=== PATIENT | female | born 1980 | race Two or more races ===

== ENCOUNTER 2023-02-09 19:09 | Inpatient (IN) | payer BC, MEDICAID ==
[~2023-02-09] VITALS: Ht 157.5 cm; Wt 75.3 kg
[2023-02-09] MEDS ORDERED: LIDOCAINE 2%HCL (LOCAL ANESTH.) INJ 20ML MDV ONE (20:06)
[2023-02-09] MEDS ORDERED: miSOPROStol 100 mcg TAB ONE (20:06)
[2023-02-09] MEDS ORDERED: DERMOPLAST 60ML BOTTLE TOP ONE (20:06)
[2023-02-09] MEDS ORDERED: PHISODERM TOP SOLN 240ML BTL TOP ONE (20:06)
[2023-02-09] MEDS ORDERED: LACT. RINGERS/OXYTOCIN 20UNITS 1,000 ML IV ONE (20:06)
[2023-02-09] MEDS ORDERED: WITCH HAZEL-GLYCERIN PAD TOP ONE (20:06)
[2023-02-09] MEDS ORDERED: OXYTOCIN 10UNIT/ML 1ML VIAL ONE ×2 (20:06→20:07)
[2023-02-09] MEDS ORDERED: METHYLERGONOVINE MALEATE 0.2 MG/ML AMP IM ONE (20:07)
[2023-02-09] MEDS ORDERED: DERMOPLAST 60ML BOTTLE TOP PRN (20:45)
[2023-02-09] MEDS ORDERED: PHISODERM TOP SOLN 240ML BTL TOP PRN (20:45)
[2023-02-09] MEDS ORDERED: METHYLERGONOVINE MALEATE 0.2 MG/ML AMP IM PRN (20:45)
[2023-02-09] MEDS: LACTATED RINGER'S 1,000 ML IV SCH (20:45)
[2023-02-09] MEDS ORDERED: LACT. RINGERS/OXYTOCIN 20UNITS 500 ML IV ONE ×2 (20:45→21:15)
[2023-02-09] MEDS ORDERED: WITCH HAZEL-GLYCERIN PAD TOP PRN (20:45)
[2023-02-09] MEDS ORDERED: LIDOCAINE 2%HCL (LOCAL ANESTH.) INJ 20ML MDV IJ PRN (20:45)
[2023-02-09] MEDS ORDERED: IBUPROFEN 600 MG TAB PO PRN (21:15)
[2023-02-09] MEDS ORDERED: ONDANSETRON ODT 4 MG TAB PO PRN (21:15)
[2023-02-09] MEDS ORDERED: ACETAMINOPHEN 325 MG TAB PO PRN (21:15)
[2023-02-09 21:24] LABS: Basophils # (auto) 0 10 ^3/uL (0-0.2); Basophils % (auto) 0.4 % (0.0-2.0); Eosinophils # (auto) 0 10 ^3/uL (0-0.8); Eosinophils % (auto) 0.3 % (0.0-7.0); Hematocrit 39.9 % (36.0-46.0); Hemoglobin 13.8 g/dL (12.2-16.2); Lymphocytes # (auto) 1.3 10 ^3/uL (0.4-5.4); Mean Corpuscular Hemoglobin 32.9 pg (28.0-32.0); Mean Corpuscular Hgb Conc. 34.7 g/dL (32.0-36.0); Mean Corpuscular Volume 94.8 fL (80.0-100.0); Monocytes # (auto) 0.6 10 ^3/uL (0-1.3); Neutrophils # (auto) 8.2 10 ^3/uL (1.6-8.6); Neutrophils % (auto) 80.3 % (37.0-80.0); Nucleated Red Blood Cells % 0.2 %; Red Blood Cells 4.21 10^6/uL (4.0-5.20); Red Cell Distribution Width 13.6 % (11.8-14.3); White Blood Cell 10.2 10^3/uL (4.4-10.8)
[2023-02-09 21:42] LABS: INR 0.91 (0.9-1.15)
[2023-02-09 21:47] LABS: Urine Bacteria NONE SEEN /hpf (None Seen); Urine Blood Negative /uL (Negative); Urine WBC 1 /hpf (0 - 5)
[2023-02-09] MEDS: DOCUSATE SOD 100 MG CAP PO SCH (21:51)
[2023-02-09 21:57] LABS: Potassium 3.8 mmol/L (3.5-5.1)
[2023-02-09 22:04] LABS: Albumin 2.7 g/dL (3.4-5.0); BUN/Creatinine Ratio 14.8 (10.0-20.0); Bilirubin, Total 0.5 mg/dL (0.2-1.0); Total Protein 6.7 g/dL (6.4-8.2)
[2023-02-09 22:14] LABS: Alcohol, Urine < 3.0 mg/dL (0-10); Amphetamine Screen, Urine NEGATIVE (NEGATIVE); Barbiturate Scree,Urine NEGATIVE (NEGATIVE); Benzodiazephine Screen, Urine NEGATIVE (NEGATIVE); Cannabinoid Screen, Urine NEGATIVE (NEGATIVE); Cocaine Screen, Urine NEGATIVE (NEGATIVE); Opiate Scree,Urine NEGATIVE (NEGATIVE); Phencyclidine Screen, Urine NEGATIVE (NEGATIVE)
[2023-02-09 23:10] VITALS: BP 105/56
[2023-02-10 03:00] VITALS: BP 103/55
[2023-02-10] MEDS: LACTATED RINGER'S 1,000 ML IV SCH ×2 (04:45→12:45)
[2023-02-10 07:00] VITALS: BP 96/53
[2023-02-10 11:00] VITALS: BP 92/47
[2023-02-10 15:00] VITALS: BP 90/45
[2023-02-10 18:35] VITALS: BP 95/54
[2023-02-10] MEDS: DOCUSATE SOD 100 MG CAP PO SCH (22:11)
[2023-02-10 22:52] VITALS: BP 96/53
[2023-02-11 02:40] VITALS: BP 95/51
[2023-02-11 06:40] VITALS: BP 95/55
[2023-02-13 05:06] LABS: RPR Non Reactive (Non Reactive)
== END 2023-02-11 10:40 | disposition home or self-care (01) | DRG 807 ==
LOC: LDRP 19:09 → OBSVTOIN 20:46 → LDRP 23:00
PROVIDERS: ADMIT Obstetrics & Gynecology; ATTEND Obstetrics & Gynecology
PROC: 10E0XZZ Delivery of Products of Conception, External Approach (ICD-10-PCS; principal; 2023-02-09)
PROC: 0HQ9XZZ Repair Perineum Skin, External Approach (ICD-10-PCS; 2023-02-09)
DX: O70.0 First degree perineal laceration during delivery (principal); Z37.0 Single live birth; Z3A.38 38 weeks gestation of pregnancy; Z20.822 Contact with and (suspected) exposure to COVID-19
CPT/HCPCS: 36415; 59409; 80053; 80307; 81001; 81002; 85025; 85610; 85730; 86592; 86850; 86900; 86901; 87426; 94760; 96360; 96365; 96372; G0378; J2590